=== PATIENT | male | born 1970 | race Caucasian/White ===

== ENCOUNTER 2017-05-24 00:31 | Emergency (ER) | payer OTHER ==
[~2017-05-24] VITALS: Ht 165.1 cm; Wt 85.5 kg
[~2017-05-24 00:31] MED LIST: ASPI-664; ATA25; [UNRECOGNIZED DRUG - CODE]
[2017-05-24 01:06] VITALS: Ht 165.1 cm; Wt 85.5 kg
[2017-05-24] MEDS ORDERED: LIDOCAINE/MYLANTA 40 ML BTL PO STA (01:21)
[2017-05-24] MEDS ORDERED: BELLADONNA/PHENOBARBITAL TAB PO STA (01:21)
[2017-05-24] MEDS ORDERED: FAMOTIDINE 20 MG TAB PO STA (01:21)
[2017-05-24] MEDS ORDERED: SOD CHLORIDE 0.9% 1,000 ML IV STA (01:21)
[2017-05-24] MEDS ORDERED: LORAZEPAM 2 MG INJ IV ONE (01:30)
[2017-05-24] MEDS ORDERED: LISI2.5T59 PO (01:55)
[2017-05-24] MEDS ORDERED: OMEP20CA16 PO (01:56)
[2017-05-24 02:18] LABS: BASOPHILS % 0.7 % (0.0-2.0); EOSINOPHILS # 0.1 10^3/ul (0.0-0.5); EOSINOPHILS % 1.3 % (0.0-7.0); HEMATOCRIT 42.6 % (42.0-52.0); HEMOGLOBIN 14.9 g/dl (14.0-18.0); LYMPHOCYTES # 2.2 10^3/ul (0.8-2.9); LYMPHOCYTES % 39.4 % (15.0-51.0); MEAN CORPUSCULAR VOLUME 85.7 fl (82.0-101.0); MEAN PLATELET VOLUME 10.7 fl (7.4-10.4); MONOCYTE # 0.6 10^3/ul (0.3-0.9); NEUTROPHIL # 2.7 10^3/ul (1.6-7.5); NEUTROPHILS % 48.4 % (39.0-77.0); PLATELET COUNT 227 10^3/UL (140-415); RED BLOOD COUNT 4.97 10^6/ul (4.70-6.10); RED CELL DISTRIBUTION WIDTH 12.4 % (11.5-14.5); WHITE BLOOD COUNT 5.6 10^3/ul (4.8-10.8)
--- NOTE | 2017-05-24 02:38 | RADRPT ---
PROCEDURE: Noncontrast CT Head. CLINICAL INDICATION: Pain. TECHNIQUE: Noncontrast CT of the head was obtained. The administered radiation dose was CTDI vol = 44 mGy, DLP = 720 mGy-cm. COMPARISON: No pertinent prior examinations were submitted for comparison. FINDINGS: The ventricles and cortical sulci are mildly enlarged. There is no acute intracranial hemorrhage or extra-axial fluid collection. There is no mass effect. No midline shift is identified. There is no loss of anaya-white differentiation to suggest acute infarction. The orbits are within normal limits. The paranasal sinuses and mastoid air cells are without fluid. No destructive osseous lesion is identified. IMPRESSION: No acute findings. Mild diffuse parenchymal volume loss. RPTAT: HIKT .Adalberto Akins MD, Date Time Electronically viewed and signed by .Adalberto Akins MD, on 05/24/2017 02:37 .T/
[2017-05-24 02:41] LABS: ALANINE AMINOTRANSFERASE 28 IU/L (13-69); ALBUMIN 4.1 g/dl (3.3-4.9); ALKALINE PHOSPHATASE 67 IU/L (42-121); ANION GAP 20 (8-16); ASPARTATE AMINO TRANSFERASE 23 IU/L (15-46); BILIRUBIN,INDIRECT 0.2 mg/dl (0-1.1); BILIRUBIN,TOTAL 0.2 mg/dl (0.2-1.3); BLOOD UREA NITROGEN 18 mg/dl (7-20); CALCIUM 9.5 mg/dl (8.4-10.2); CARBON DIOXIDE 25 mmol/L (21-31); CHLORIDE 101 mmol/L (97-110); GLUCOSE 109 mg/dl (70-220); POTASSIUM 3.9 mmol/L (3.5-5.1); SODIUM 142 mmol/L (135-144); TOTAL PROTEIN 7.5 g/dl (6.1-8.1)
[2017-05-24 02:54] LABS: TROPONIN-I < 0.012 ng/ml (0.00-0.12)
[2017-05-24] MEDS ORDERED: MAG355OR14 PO (02:57)
[2017-05-24] MEDS ORDERED: FAMO40TA52 PO (02:57)
[2017-05-24] MEDS ORDERED: NAPR-260 PO (02:57)
[2017-05-24 03:28] VITALS: BP 121/75; PULSE 56; RESP 16
--- NOTE | 2017-05-24 05:35 | ERD ---
ER Documentation Chief Complaint Date/Time DATE: 05/24/17 TIME: 05:32 Chief Complaint HEADACHE SINCE YESTERDAY HPI 39-year-old man complains of headache 2 days, the pain has been nonexertional nonradiating and he has had similar episodes in the past. Patient also complains of epigastric pain and burning with belching and some nausea although denies vomiting or diarrhea. Patient denies dysuria, no blood per rectum or melena, no weight loss, no weakness in his arms or legs, no complaints of chest pain or shortness of breath. He denies that this is the worst headache of his life and states the pain began gradually. ROS All systems reviewed and are negative except as per history of present illness. Medications Home Meds Active Scripts Mag Hydrox/Al Hydrox/Simeth (Maalox Advanced Suspension) 355 Ml Oral.susp, 2 TSP PO TID for PAIN, #24 OZ Prov:BUTCH LIANG MD 05/24/17 Famotidine* (Famotidine*) 40 Mg Tablet, 40 MG PO HS, #30 TAB Prov:BUTCH LIANG MD 05/24/17 Naproxen* (Naprosyn*) 500 Mg Tablet, 500 MG PO BID Y for PAIN AND/OR INFLAMMATION, #30 TAB Prov:BUTCH LIANG MD 05/24/17 Reported Medications Omeprazole* (Omeprazole*) 20 Mg Capsule., 20 MG PO BID, #60 CAP 05/24/17 Lisinopril* (Lisinopril*) 2.5 Mg Tablet, 2.5 MG PO DAILY, #30 TAB 05/24/17 Discontinued Reported Medications Hydroxyzine Hcl* (Atarax*) 25 Mg Tab 06/19/10 Aspirin* (Aspirin* EC) 81 Mg Tablet. 06/19/10 Ranitidine Hcl (Taladine) 150 Mg Capsule 06/19/10 Allergies Allergies: Coded Allergies: No Known Drug Allergy (Unverified Allergy, Mild, 05/24/17) PMhx/Soc Gastritis, hypertension History of Surgery: No Anesthesia Reaction: No Hx Neurological Disorder: No Hx Respiratory Disorders: No Hx Cardiac Disorders: Yes (HTN) Hx Psychiatric Problems: No Hx Miscellaneous Medical Probl: No Hx Alcohol Use: Yes Hx Substance Use: No Hx Tobacco Use: No Smoking Status: Current every day smoker FmHx Family History: No diabetes Physical Exam Vitals Vital Signs Date Time Temp Pulse Resp B/P Pulse Ox O2 Delivery O2 Flow Rate FiO2 05/24/17 03:28 56 16 121/75 99 Room Air 05/24/17 01:55 55 16 137/83 99 Room Air 05/24/17 01:06 97.7 58 18 170/94 98 05/24/17 00:37 97.7 58 18 170/94 98 Physical Exam GENERAL: Well-developed, well-nourished, well-hydrated, anxious HEENT: Moist mucous membranes, pink conjunctiva, no cervical spine tenderness or step-off deformities, no goiter, no jaundice or icterus, extraocular movements intact without pain. No submandibular induration, and no pharyngeal erythema NEURO: Alert and oriented 3, cranial nerves II through XII intact bilaterally, pupils equal round reactive to light, no focal deficits or facial asymmetry, sensation intact distally Strength 5/5 in upper and lower extremities bilaterally CARDIAC: Regular rate and rhythm, no murmurs rubs or gallops LUNGS: Clear bilaterally no wheezing crackles or stridor ABDOMEN: Soft nontender, no guarding, no rigidity, no rebound, no psoas sign no obturator sign. Normoactive bowel sounds SKIN: Warm and dry to touch, no abrasions, contusions, or hematomas, no lacerations, no ecchymosis, no target lesions, and without ulcers EXTREMITIES: No clubbing cyanosis or edema, calves are bilaterally symmetrical, no Homans sign, no popliteal cord sign. Distal pulses equal and bilateral PSYCH: Appears anxious Result Diagram: 05/24/17 0154 05/24/17 0154 Results 24 hrs Laboratory Tests Test 05/24/17 01:54 White Blood Count 5.610^3/ul Red Blood Count 4.9710^6/ul Hemoglobin 14.9g/dl Hematocrit 42.6% Mean Corpuscular Volume 85.7fl Mean Corpuscular Hemoglobin 30.0pg Mean Corpuscular Hemoglobin Concent 35.0g/dl Red Cell Distribution Width 12.4% Platelet Count 37276^3/UL Mean Platelet Volume 10.7fl Neutrophils % 48.4% Lymphocytes % 39.4% Monocytes % 10.0% Eosinophils % 1.3% Basophils % 0.7% Nucleated Red Blood Cells % 0.0/100WBC Neutrophils # 2.710^3/ul Lymphocytes # 2.210^3/ul Monocytes # 0.610^3/ul Eosinophils # 0.110^3/ul Basophils # 0.010^3/ul Nucleated Red Blood Cells # 0.010^3/ul Sodium Level 142mmol/L Potassium Level 3.9mmol/L Chloride Level 101mmol/L Carbon Dioxide Level 25mmol/L Anion Gap 20 Blood Urea Nitrogen 18mg/dl Creatinine 1.10mg/dl Glucose Level 109mg/dl Calcium Level 9.5mg/dl Total Bilirubin 0.2mg/dl Direct Bilirubin 0.00mg/dl Indirect Bilirubin 0.2mg/dl Aspartate Amino Transf (AST/SGOT) 23IU/L Alanine Aminotransferase (ALT/SGPT) 28IU/L Alkaline Phosphatase 67IU/L Troponin I < 0.012ng/ml Total Protein 7.5g/dl Albumin 4.1g/dl Globulin 3.40g/dl Albumin/Globulin Ratio 1.20 Lipase 155U/L Current Medications Medications (Trade) Dose Ordered Sig/Michael Route PRN Reason Start Time Stop Time Status Last Admin Dose Admin Sodium Chloride (NS) 1,000 ml @ 1,000 mls/hr Q1H STAT IV 05/24/17 01:21 05/24/17 02:20 DC 05/24/17 01:51 Famotidine (Pepcid) 40 mg ONCE STAT PO 05/24/17 01:21 05/24/17 01:23 DC 05/24/17 01:50 Miscellaneous Medication (Gi Cocktail (2)) 40 ml ONCE STAT PO 05/24/17 01:21 05/24/17 01:23 DC 05/24/17 01:50 Belladonna/ Phenobarbital () 2 tab ONCE STAT PO 05/24/17 01:21 05/24/17 01:23 DC 05/24/17 01:50 Lorazepam (Ativan) 0.5 mg ONCE ONCE IV 05/24/17 01:30 05/24/17 01:31 DC Procedures/MDM IV line was established patient was placed on satellite project site monitor rhythm strip revealed a sinus rhythm at about 60 bpm with upright P and T waves. Patient was afebrile. CT scan of the brain was performed that was negative for acute bleed mass or shift. I ordered lorazepam for anxiety although patient refused, he did receive a GI cocktail 50 cc p.o., famotidine 40 mg p.o., and Zofran 4 mg IV with 1 L normal saline intravenously. CBC and electrolytes are normal, liver function tests are normal, troponin was negative. EKG performed, read by me: Sinus bradycardia 55 bpm, first-degree AV block, normal sinus rhythm, normal axis, no acute ST segment changes, narrow QRS complex, with good R-wave progression in precordial leads. Differential diagnoses considered, included but not limited to acute coronary syndrome, pulmonary embolism, aortic dissection, abdominal aortic aneurysm, sepsis, stroke, meningitis, encephalitis, pneumonia, appendicitis, cholecystitis , bowel obstruction, pyelonephritis, nephrolithiasis, cystitis, as well as metabolic, hematologic, and electrolyte abnormalities. As well as abscess, cellulitis, fractures, and dislocations. Patient feels much better at this time, and vital signs are normal, symptoms have improved. I did give strict instructions to return to the ED if symptoms continue or worsen, patient will otherwise follow-up with primary care physician. Patient understood instructions and agreed to plan. Disclaimer: Inadvertent spelling and grammatical errors are likely due to EHR/ dictation software use and do not reflect on the overall quality of patient care. Also, please note that the electronic time recorded on this note does not necessarily reflect the actual time of the patient encounter. Departure Diagnosis: Primary Impression: Headache Headache type: tension-type Headache chronicity pattern: acute headache Intractability: not intractable Qualified Code: G44.209 - Acute non intractable tension-type headache Additional Impression: GERD (gastroesophageal reflux disease) Esophagitis presence: with esophagitis Qualified Code: K21.0 - Gastroesophageal reflux disease with esophagitis Condition: Good Patient Instructions: Gastritis (Adult), Headache, Tension Referrals: [facility] (PCP) BUTCH LIANG MD May 24, 2017 05:35
== END 2017-05-24 03:29 | disposition home or self-care (01) ==
LOC: E/R 00:31
DX: G44.209 Tension-type headache, unspecified, not intractable (principal); K21.0 Gastro-esophageal reflux disease with esophagitis; I10 Essential (primary) hypertension; F17.210 Nicotine dependence, cigarettes, uncomplicated; Z79.82 Long term (current) use of aspirin
CPT/HCPCS: 36415; 70450; 80053; 83690; 84484; 85025; 93005; 96374; J7030; Z7502; Z7610; J2060

== ENCOUNTER 2017-09-15 13:58 | Emergency (ER) | payer OTHER ==
[~2017-09-15] VITALS: Ht 157.5 cm; Wt 85.5 kg
[~2017-09-15 13:58] MED LIST changes: -ASPI-664; -ATA25; +FAMO40TA52 PO; +LISI2.5T59 PO; +MAG355OR14 PO; +NAPR-260 PO; +OMEP20CA16 PO; -[UNRECOGNIZED DRUG - CODE]
[2017-09-15 14:02] VITALS: Ht 157.5 cm; Wt 85.5 kg
--- NOTE | 2017-09-15 14:45 | ERD ---
ER Documentation Chief Complaint Chief Complaint Complains of a headache x 2 days HPI 47y/o male patient with history of poorly controlled hypertension, presents to the emergency department with his daughter c/o gradual onset of headache, constant, located in the frontal area, that started 2 days ago. The pain is dull , rated 6/10, radiated to the neck. The symptoms are probably caused by stress and the blood pressure. Denies fever, chills, N/V/D. No recent history of previous episodes. Treatment attempted: None. ROS SYSTEMIC symptoms: no fever, chills, no night sweats, no weight loss EYE symptoms: No blurred vision, no eye discharge OTOLARYNGEAL symptoms: No hearing loss. No ear pain, no sore throat CARDIOVASCULAR symptoms: No chest pain or discomfort, no palpitations. PULMONARY symptoms: No dyspnea, no cough, no wheezing. GASTROINTESTINAL symptoms: No abdominal pain, no nausea, no vomiting, no diarrhea MUSCULOSKELETAL symptoms: No arthralgias, no muscle aches. NEUROLOGY symptoms: No confusion, no syncope, no numbness or tingling. SKIN no rashes Medications Home Meds Active Scripts Hydrocodone/Acetaminophen ([place] 5-325 Tablet) 1 Each Tablet, 1 EACH PO TID Y for SEVERE PAIN LEVEL 7-10 for 5 Days, #15 TAB Prov:MITCH BEDOLLA MD 09/15/17 Lisinopril* (Lisinopril*) 10 Mg Tablet, 10 MG PO DAILY, #90 TAB Prov:MITCH BEDOLLA MD 09/15/17 Mag Hydrox/Al Hydrox/Simeth (Maalox Advanced Suspension) 355 Ml Oral.susp, 2 TSP PO TID for PAIN, #24 OZ Prov:BUTCH LIANG MD 05/24/17 Famotidine* (Famotidine*) 40 Mg Tablet, 40 MG PO HS, #30 TAB Prov:BUTCH LIANG MD 05/24/17 Naproxen* (Naprosyn*) 500 Mg Tablet, 500 MG PO BID Y for PAIN AND/OR INFLAMMATION, #30 TAB Prov:BUTCH LIANG MD 05/24/17 Reported Medications Omeprazole* (Omeprazole*) 20 Mg Capsule.dr, 20 MG PO BID, #60 CAP 05/24/17 Lisinopril* (Lisinopril*) 2.5 Mg Tablet, 2.5 MG PO DAILY, #30 TAB 05/24/17 Allergies Allergies: Coded Allergies: No Known Drug Allergy (Unverified Allergy, Mild, 05/24/17) PMhx/Soc History of Surgery: No Anesthesia Reaction: No Hx Neurological Disorder: No Hx Respiratory Disorders: No Hx Cardiac Disorders: Yes (HTN) Hx Psychiatric Problems: No Hx Miscellaneous Medical Probl: No Hx Alcohol Use: Yes Hx Substance Use: No Hx Tobacco Use: No Smoking Status: Never smoker FmHx mother with diabetes Physical Exam Vitals Vital Signs Date Time Temp Pulse Resp B/P Pulse Ox O2 Delivery O2 Flow Rate FiO2 09/15/17 14:02 98.0 80 20 159/88 96 Physical Exam Patient is in no acute distress, vital signs stable. Alert and fully oriented. EYES: PERRLA, EOMI, Sclera and conjunctiva appear normal. EARS: Canals clear, tympanic membranes WNL THROAT: Normal oropharynx. NECK: Supple, No lymphadenopathy. Full ROM without pain or tenderness. HEART: RRR, no rubs, murmurs, clicks or gallops. LUNGS: Clear to auscultation. ABDOMEN: Soft, non-tender without masses or hepatosplenomegaly. EXTREMITIES: No edema bilaterally. BACK: Full ROM, no deformity, normal back exam NEURO: Cranial nerves grossly intact, no motor or sensory deficit Results 24 hrs Current Medications Medications (Trade) Dose Ordered Sig/Michael Route PRN Reason Start Time Stop Time Status Last Admin Dose Admin Ketorolac Tromethamine (Toradol) 60 mg ONCE STAT IM 09/15/17 14:48 09/15/17 14:49 DC 09/15/17 14:53 Procedures/MDM 47y/o male patient history of hypertension, presents to the ED c/o headache for 2 days. Vital signs stable, Physical exam unremarkable, neurovascular exam intact. Differential diagnosis include but not limited to: Classical migraine, sinusitis, visual corrective problems, side effects of medications, dehydration , electrolyte imbalance, endocrine/autoimmune medical condition, stress, anxiety , tension headache. Low suspicion for meningitis, [employer] LEAD tumor, cerebrovascular event.. Physical examination and clinical presentation consistent most likely with tension headache and poorly controlled hypertension. During the ED course the patient received treatment with Toradol IM presenting overall improvement of the symptoms. Results and clinical impression discussed with the patient who agrees with management. The patient is stable to be treated outpatient and will be discharged home with a Rx for [place] and lisinopril 10 mg p.o. daily. Side effects of prescribed medications (headache, rash, nausea, vomiting, diarrhea) were reviewed. Side effects of prescribed opiates (drowsiness, habituation) were reviewed. The patient was instructed to follow up with the primary care provider in the next 48h. If symptoms persist, worsen or new symptoms develop, then patient should return to the ED immediately. Instructions explained and given to patient in American with acknowledgment and demonstrated understanding. Disclaimer: Inadvertent spelling and grammatical errors are likely due to EHR/ dictation software use and do not reflect on the overall quality of patient care. Also, please note that the electronic time recorded on this note does not necessarily reflect the actual time of the patient encounter. Departure Diagnosis: Primary Impression: Tension headache Additional Impression: Poorly-controlled hypertension Condition: Stable Additional Instructions: Muchas michelle por [facility] para silva servicio. Esperamos que en silva visita a la juancarlos de emergencia silva problema medico haya sido solucionado y que se sienta mucho mejor. Para estar seguros que silva mejoria sigue en proceso, le pedimos el favor de hacer josh malcolm de seguimiento medico con silva doctor primario en los proximos 2-4 colunga. Lleve con usted estos documentos y las medicinas recetadas. Si rob sintomas empeoran y no puede chava a silva doctor, por favor regrese a juancalros de emergencia. En mark que usted no tenga un mdico de atencin primaria: Llame al mdico o clnica comunitaria de referencia que aparece abajo lindy las horas de consultorio para hacer josh malcolm para que le vean. CLINICAS: [facility] 956 [phone] [address] [facility] 417 [phone] [address] [facility] 030 [phone] [address] [facility] [phone] [address] [facility] 026 [phone] [facility]. [phone] MITCH WILLIAMSON MD Sep 15, 2017 14:45
[2017-09-15] MEDS ORDERED: KETOROLAC 60 MG INJ IM STA (14:48)
[2017-09-15] MEDS ORDERED: HYDR-906 PO (15:08)
[2017-09-15] MEDS ORDERED: LISI10TA2 PO (15:08)
== END 2017-09-15 16:09 | disposition home or self-care (01) ==
LOC: FTE 13:58
DX: G44.209 Tension-type headache, unspecified, not intractable (principal); I10 Essential (primary) hypertension
CPT/HCPCS: 96372; J1885; Z7502